=== PATIENT | male | born 1955 | race Caucasian/White ===

== ENCOUNTER 2018-10-26 19:00 | Observation (INO) | payer BC ==
[~2018-10-26] VITALS: Ht 182.9 cm; Wt 104.7 kg
[2018-10-26 20:09] VITALS: BP 145/88; PULSE 55; TEMP 98
[2018-10-26] MEDS ORDERED: INDERAL LA160 MG PO (20:27)
[2018-10-26] MEDS ORDERED: PRAVACHOL 20MG20 MG PO (20:28)
[2018-10-26 20:51] LABS: INR 1.1 (0.8-3.0); PROTHROMBIN TIME 12.4 SECONDS (9.7-12.8)
[2018-10-26 20:55] LABS: MAGNESIUM 1.9 mg/dL (1.6-2.3)
[2018-10-26 21:12] LABS: TROPONIN-I < 0.012 ng/mL (0.000-0.034)
[2018-10-26 21:18] LABS: COLLECTION METHOD CLEAN CATCH
[2018-10-26 21:23] LABS: PH 6 (5-8); SQUAMOUS EPITHELIAL None Seen /hpf; URINE APPEARANCE Clear; URINE BACTERIA Rare /hpf; URINE BILIRUBIN Negative (NEGATIVE); URINE BLOOD Negative (NEGATIVE); URINE COLOR Yellow; URINE GLUCOSE Negative (NEGATIVE); URINE KETONE Negative (NEGATIVE); URINE LEUKOCYTE ESTERASE Negative (NEGATIVE); URINE NITRATE Negative (NEGATIVE); URINE PROTEIN(semi-quant) Negative (NEGATIVE); URINE RBC 0-2 /hpf
[2018-10-27] VITALS (18 sets, daily range): BP systolic 95–160; BP diastolic 51–104; PULSE 52–97; TEMP 97.6–98.4
[2018-10-27 06:04] LABS: BASO # 0.1 (0.0-0.2); BASO % 0.7 % (0.0-2.0); EOS # 0.1 (0.0-0.7); EOS % 1.6 % (0-4.0); GRAN # 5.1 (1.4-6.5); GRAN % 61.2 % (42.2-75.2); HEMATOCRIT 42.6 % (42.0-52.0); HEMOGLOBIN 14.4 g/dl (13.5-18.0); LYMPH # 2.4 (1.2-3.4); LYMPH % 28.4 % (20.0-51.0); MEAN CELL VOLUME 90 fl (80.0-100.0); MEAN CORPUSCULAR HEMOGLOBIN 30 pg (27.0-31.0); MEAN CORPUSCULAR HGB CONC 34 g/dl (33.0-37.0); MEAN PLATELET VOLUME 9.6 fl (7.4-10.4); MONO # 0.6 (0.1-0.6); MONO % 7.7 % (1.7-9.3); PLATELET COUNT 228 K/mm3 (130-400); RED BLOOD COUNT 4.74 M/mm3 (4.20-5.60); REDCELL DISTRIBUTION WIDTH-CV 12.8 % (11.5-14.5)
[2018-10-27 06:09] LABS: ALANINE AMINOTRANSFERASE 28 U/L (21-72); ALBUMIN 3.7 gm/dL (3.5-5.0); ALKALINE PHOSPHATASE 77 U/L (50-136); ANION GAP 6 mmol/L (7-16); AST,SGOT 20 U/L (15-37); BILIRUBIN,TOTAL 0.8 mg/dL (0.0-1.0); BLOOD UREA NITROGEN 11 mg/dL (9-20); CALCIUM 8.6 mg/dL (8.4-10.2); CARBON DIOXIDE 27 mmol/L (22-30); CHLORIDE 106 mmol/L (98-107); CHOLESTEROL 137 mg/dL (120-200); CHOLESTEROL RISK RATIO 5.4; CREATININE, serum 0.87 mg/dL (0.66-1.25); GLUCOSE 102 mg/dL (74-106); HDL CHOLESTEROL 25 mg/dL; LDL CHOLESTEROL 69 mg/dL; POTASSIUM 3.9 mmol/L (3.4-5.0); SODIUM 139 mmol/L (137-145); TRIGLYCERIDE 214 mg/dL
[2018-10-27 06:22] LABS: TROPONIN-I < 0.012 ng/mL (0.000-0.034)
[2018-10-28] VITALS: BP 109/67; PULSE 65; TEMP 97.4; TEMP 97.6
[2018-10-28 04:00] VITALS: BP 128/73; PULSE 70; TEMP 97.4
[2018-10-28 05:54] LABS: BASO % 0.1 % (0.0-2.0); GRAN % 87.9 % (42.2-75.2); HEMATOCRIT 41.7 % (42.0-52.0); HEMOGLOBIN 14.2 g/dl (13.5-18.0); LYMPH % 9.9 % (20.0-51.0); MEAN CELL VOLUME 89 fl (80.0-100.0); MEAN CORPUSCULAR HEMOGLOBIN 30 pg (27.0-31.0); MEAN CORPUSCULAR HGB CONC 34 g/dl (33.0-37.0); MEAN PLATELET VOLUME 9.6 fl (7.4-10.4); MONO # 0.2 (0.1-0.6); MONO % 1.7 % (1.7-9.3); PLATELET COUNT 235 K/mm3 (130-400); REDCELL DISTRIBUTION WIDTH-CV 12.5 % (11.5-14.5)
[2018-10-28 06:32] LABS: CALCIUM 8.7 mg/dL (8.4-10.2); CREATININE, serum 0.78 mg/dL (0.66-1.25); POTASSIUM 4.2 mmol/L (3.4-5.0)
[2018-10-28 08:00] VITALS: BP 139/73; PULSE 84; TEMP 97.7
[2018-10-28] MEDS ORDERED: BRILINTA90 MG PO (10:03)
[2018-10-28] MEDS ORDERED: ASPIRIN 81M81 MG/TA2 PO (10:04)
[2018-10-28] MEDS ORDERED: NITROSTAT0.4 MG/TAB SL (10:04)
== END 2018-10-28 12:58 | disposition home or self-care (01) ==
LOC: IMCU 19:00 → ICU 19:55
PROVIDERS: Internal Medicine; Internal Medicine Cardiovascular Disease; Nurse Practitioner Family
DX: I25.110 Atherosclerotic heart disease of native coronary artery with unstable angina pectoris (principal); E78.5 Hyperlipidemia, unspecified; R03.0 Elevated blood-pressure reading, without diagnosis of hypertension; G25.0 Essential tremor; J44.9 Chronic obstructive pulmonary disease, unspecified; Z87.891 Personal history of nicotine dependence; Z79.82 Long term (current) use of aspirin; Z82.49 Family history of ischemic heart disease and other diseases of the circulatory system
CPT/HCPCS: C9600; G0378; G0379; J0583; J1200; J1644; J2250; J2930; J3010; J7030; Q9967

== ENCOUNTER 2018-10-28 19:06 | Observation (INO) | payer BC ==
[~2018-10-28] VITALS: Ht 182.9 cm; Wt 106.3 kg
[~2018-10-28 19:06] MED LIST: ASPIRIN 81M81 MG/TA2 PO; BRILINTA90 MG PO; INDERAL LA160 MG PO; NITROSTAT0.4 MG/TAB SL; PRAVACHOL 20MG20 MG PO
[2018-10-28 19:55] LABS: BASO # 0.1 (0.0-0.2); BASO % 0.3 % (0.0-2.0); EOS % 0.2 % (0-4.0); GRAN # 13.2 (1.4-6.5); GRAN % 73.1 % (42.2-75.2); HEMATOCRIT 42.4 % (42.0-52.0); HEMOGLOBIN 14.5 g/dl (13.5-18.0); LYMPH # 3.3 (1.2-3.4); LYMPH % 18.2 % (20.0-51.0); MEAN CELL VOLUME 90 fl (80.0-100.0); MEAN CORPUSCULAR HEMOGLOBIN 31 pg (27.0-31.0); MEAN CORPUSCULAR HGB CONC 34 g/dl (33.0-37.0); MEAN PLATELET VOLUME 9.5 fl (7.4-10.4); MONO # 1.4 (0.1-0.6); MONO % 7.7 % (1.7-9.3); PLATELET COUNT 262 K/mm3 (130-400); RED BLOOD COUNT 4.73 M/mm3 (4.20-5.60); REDCELL DISTRIBUTION WIDTH-CV 13.2 % (11.5-14.5)
[2018-10-28 20:14] LABS: ALANINE AMINOTRANSFERASE 23 U/L (21-72); ALKALINE PHOSPHATASE 70 U/L (50-136); ANION GAP 7 mmol/L (7-16); AST,SGOT 36 U/L (15-37); BILIRUBIN,TOTAL 0.5 mg/dL (0.0-1.0); BLOOD UREA NITROGEN 14 mg/dL (9-20); CALCIUM 9.1 mg/dL (8.4-10.2); CARBON DIOXIDE 27 mmol/L (22-30); CHLORIDE 107 mmol/L (98-107); GLUCOSE 100 mg/dL (74-106); LIPASE 64 U/L (23-300); POTASSIUM 4.2 mmol/L (3.4-5.0); SODIUM 141 mmol/L (137-145); TOTAL PROTEIN 7.2 gm/dL (6.4-8.2)
[2018-10-28 20:28] LABS: TROPONIN-I < 0.012 ng/mL (0.000-0.034)
[2018-10-28 20:33] LABS: C-REACTIVE PROTEIN < 0.5 mg/dL (0.0-0.9)
[2018-10-28 21:57] VITALS: BP 153/79; PULSE 50; TEMP 97.6
[2018-10-28 23:25] LABS: MAGNESIUM 1.9 mg/dL (1.6-2.3)
[2018-10-28 23:38] LABS: TROPONIN-I 3 HR POST INITIAL 0.013 ng/mL (0.000-0.034)
[2018-10-29 00:46] VITALS: BP 121/56; PULSE 50; TEMP 97.7
[2018-10-29 04:20] VITALS: BP 149/69; PULSE 52; TEMP 97.6
[2018-10-29 06:11] LABS: BASO # 0.1 (0.0-0.2); BASO % 0.5 % (0.0-2.0); EOS # 0.1 (0.0-0.7); EOS % 0.8 % (0-4.0); GRAN # 7.9 (1.4-6.5); GRAN % 67.2 % (42.2-75.2); HEMATOCRIT 43.4 % (42.0-52.0); HEMOGLOBIN 14.4 g/dl (13.5-18.0); LYMPH # 2.9 (1.2-3.4); LYMPH % 24.3 % (20.0-51.0); MEAN CELL VOLUME 91 fl (80.0-100.0); MEAN CORPUSCULAR HEMOGLOBIN 30 pg (27.0-31.0); MEAN CORPUSCULAR HGB CONC 33 g/dl (33.0-37.0); MEAN PLATELET VOLUME 9.8 fl (7.4-10.4); MONO # 0.8 (0.1-0.6); MONO % 6.8 % (1.7-9.3); PLATELET COUNT 243 K/mm3 (130-400); RED BLOOD COUNT 4.79 M/mm3 (4.20-5.60); REDCELL DISTRIBUTION WIDTH-CV 13.2 % (11.5-14.5)
[2018-10-29 06:20] LABS: ALANINE AMINOTRANSFERASE 36 U/L (21-72); ALBUMIN 3.8 gm/dL (3.5-5.0); ALKALINE PHOSPHATASE 68 U/L (50-136); ANION GAP 6 mmol/L (7-16); AST,SGOT 43 U/L (15-37); BILIRUBIN,TOTAL 0.7 mg/dL (0.0-1.0); BLOOD UREA NITROGEN 13 mg/dL (9-20); CALCIUM 8.8 mg/dL (8.4-10.2); CARBON DIOXIDE 29 mmol/L (22-30); CHLORIDE 106 mmol/L (98-107); CREATININE, serum 0.96 mg/dL (0.66-1.25); GLUCOSE 99 mg/dL (74-106); SODIUM 142 mmol/L (137-145)
[2018-10-29 06:32] LABS: TROPONIN-I < 0.012 ng/mL (0.000-0.034)
[2018-10-29 07:42] VITALS: BP 155/73; PULSE 50; TEMP 97.7
[2018-10-29 11:57] VITALS: BP 155/74; PULSE 48; TEMP 97.5
== END 2018-10-29 14:37 | disposition home or self-care (01) ==
LOC: COL.ER 19:06 → MEDICAL 20:57
PROVIDERS: Emergency Medicine; Nurse Practitioner Family
DX: R07.9 Chest pain, unspecified (principal); I25.10 Atherosclerotic heart disease of native coronary artery without angina pectoris; E78.5 Hyperlipidemia, unspecified; Z87.891 Personal history of nicotine dependence; Z79.82 Long term (current) use of aspirin; Z95.5 Presence of coronary angioplasty implant and graft
CPT/HCPCS: 99222-AI; G0378; J1644; J2270; J7030

== ENCOUNTER 2019-05-09 04:03 | Emergency (ER) | payer BC ==
[~2019-05-09] VITALS: Ht 182.9 cm; Wt 90.9 kg
[2019-05-09 04:08] VITALS: TEMP 97
[2019-05-09] MEDS ORDERED: INDERAL60 MG PO (04:21)
[2019-05-09] MEDS ORDERED: PLAVIX 75MG TAB75 MG PO (04:22)
[2019-05-09 04:28] LABS: BASO # 0.1 (0.0-0.2); BASO % 0.7 % (0.0-2.0); EOS # 0.3 (0.0-0.7); EOS % 2.9 % (0-4.0); GRAN # 6.8 (1.4-6.5); GRAN % 72.5 % (42.2-75.2); HEMATOCRIT 44.2 % (42.0-52.0); HEMOGLOBIN 14.9 g/dl (13.5-18.0); LYMPH # 1.6 (1.2-3.4); LYMPH % 17.3 % (20.0-51.0); MEAN CELL VOLUME 90 fl (80.0-100.0); MEAN CORPUSCULAR HEMOGLOBIN 30 pg (27.0-31.0); MEAN CORPUSCULAR HGB CONC 34 g/dl (33.0-37.0); MEAN PLATELET VOLUME 9.8 fl (7.4-10.4); MONO # 0.6 (0.1-0.6); MONO % 6.2 % (1.7-9.3); PLATELET COUNT 208 K/mm3 (130-400); REDCELL DISTRIBUTION WIDTH-CV 13.1 % (11.5-14.5)
[2019-05-09 04:37] LABS: ALANINE AMINOTRANSFERASE 18 U/L (21-72); ALBUMIN 3.9 gm/dL (3.5-5.0); ALKALINE PHOSPHATASE 68 U/L (50-136); ANION GAP 10 mmol/L (7-16); AST,SGOT 20 U/L (15-37); BILIRUBIN,TOTAL 0.5 mg/dL (0.0-1.0); BLOOD UREA NITROGEN 16 mg/dL (9-20); CALCIUM 8.9 mg/dL (8.4-10.2); CARBON DIOXIDE 23 mmol/L (22-30); CHLORIDE 108 mmol/L (98-107); CREATININE, serum 0.66 (0.66-1.25); GLUCOSE 125 mg/dL (74-106); POTASSIUM 4.4 mmol/L (3.4-5.0); SODIUM 141 mmol/L (137-145); TOTAL PROTEIN 7.1 gm/dL (6.4-8.2)
[2019-05-09 04:40] LABS: PROTHROMBIN TIME 11.5 SECONDS (9.7-12.8)
[2019-05-09 04:48] LABS: TROPONIN-I < 0.012 ng/mL (0.000-0.035)
[2019-05-09 07:15] VITALS: BP 116/85; PULSE 52
== END 2019-05-09 07:46 | disposition short-term general hospital (02) ==
LOC: COL.ER 04:03
PROVIDERS: Emergency Medicine
DX: I49.9 Cardiac arrhythmia, unspecified (principal); R07.89 Other chest pain; Z79.82 Long term (current) use of aspirin; Z79.02 Long term (current) use of antithrombotics/antiplatelets; Z95.5 Presence of coronary angioplasty implant and graft